=== PATIENT | female | born 1940 | race Caucasian/White ===

== ENCOUNTER 2021-04-26 07:30 | Day surgery (SDC) | payer MEDICARE, OTHER ==
[2021-04-26] VITALS (9 sets, daily range): BP systolic 158–174; BP diastolic 49–103
[~2021-04-26] VITALS: Ht 170.2 cm; Wt 110.0 kg
[2021-04-26] MEDS ORDERED: cefazolin/dext.iso 2gm/100ml 100 ML IV ONE (08:00)
[2021-04-26] MEDS ORDERED: NIFE90TA61 PO (08:00)
[2021-04-26] MEDS ORDERED: POTA10TA36 (08:00)
[2021-04-26] MEDS ORDERED: ASPI-1053 PO (08:00)
[2021-04-26] MEDS ORDERED: PRAV80TA3 PO (08:00)
[2021-04-26] MEDS ORDERED: METF-438 PO (08:00)
[2021-04-26] MEDS ORDERED: EZET10TA48 PO (08:00)
[2021-04-26] MEDS ORDERED: OLME40TA18 PO (08:00)
[2021-04-26] MEDS ORDERED: INSU3INS2 (08:00)
[2021-04-26] MEDS ORDERED: POTA10CA44 (08:00)
[2021-04-26] MEDS ORDERED: FURO20TA4 PO (08:00)
[2021-04-26 08:45] LABS: BASOPHILS # (AUTO) 0.1 X10'3 (0-0.2); BASOPHILS % (AUTO) 0.6 % (0-1); EOSINOPHILS # (AUTO) 0.2 X10'3 (0-0.9); HEMATOCRIT 35.1 % (35.0-45.0); HEMOGLOBIN 11.4 g/dl (12.0-16.0); LYMPHOCYTES # (AUTO) 1.7 X10'3 (1.1-4.8); LYMPHOCYTES % (AUTO) 18.4 % (21-51); MEAN CORPUSCULAR HGB CONC 32.5 g/dL (33.0-36.5); MEAN CORPUSCULAR VOLUME 86.1 FL (78-98); MEAN PLATELET VOLUME 8.2 FL (7.4-10.4); MONOCYTES % (AUTO) 10.3 % (2-12); NEUTROPHILS # (AUTO) 6.5 X10'3 (1.8-7.7); NEUTROPHILS % (AUTO) 68.7 % (42-75); PLATELET COUNT 454 X10'3 (140-440); RED BLOOD COUNT 4.08 X10'6 (4.20-5.60); RED CELL DISTRIBUTION WIDTH 15.5 % (11.5-14.5); WHITE BLOOD COUNT 9.5 X10'3 (4.5-11.0)
[2021-04-26] MEDS ORDERED: LIDOCAINE 2% w/EPI 1:100:000 30mL injection MDV**cath lab 1 only ONE (08:50)
[2021-04-26] MEDS ORDERED: ceFAZolin 1000mg inj ONE (08:50)
[2021-04-26] MEDS ORDERED: midazolam 1 mg/ML 2ml injection ONE ×3 (08:50→09:42)
[2021-04-26] MEDS ORDERED: fentaNYL/PF 50MCG/1 ML 2ML syringe ONE (08:50)
[2021-04-26 11:03] LABS: ANION GAP 11 (8-16); BLOOD UREA NITROGEN 35 MG/DL (7-18); CALCIUM 9.8 MG/DL (8.5-10.1); CHLORIDE 97 MMOL/L (99-107); GLUCOSE 177 MG/DL (70-104); POTASSIUM 4.8 MMOL/L (3.5-5.1); SODIUM 133 MMOL/L (135-145); TOTAL CARBON DIOXIDE 24.9 MMOL/L (24-32); eGFR 53 ML/MIN
== END 2021-04-26 13:50 | disposition home or self-care (01) ==
LOC: SSTAY O 07:30
PROVIDERS: ATTEND Internal Medicine Cardiovascular Disease
DX: I49.5 Sick sinus syndrome (principal); E11.9 Type 2 diabetes mellitus without complications; F41.9 Anxiety disorder, unspecified; E66.9 Obesity, unspecified; I25.10 Atherosclerotic heart disease of native coronary artery without angina pectoris; I35.0 Nonrheumatic aortic (valve) stenosis; I10 Essential (primary) hypertension; E78.5 Hyperlipidemia, unspecified; Z98.890 Other specified postprocedural states; Z79.899 Other long term (current) drug therapy; Z79.82 Long term (current) use of aspirin; Z88.8 Allergy status to other drugs, medicaments and biological substances
CPT/HCPCS: 33208; 36415; 71045; 80048; 82948; 83735; 85025; 85610; 93005; 99152; 99153; C1785; C1894; C1898; J0690; J2250; J3010; A4620; A6258